=== PATIENT | female | born 2000 | race African-American/Black ===

== ENCOUNTER 2024-07-01 12:37 | Emergency (ER) | payer OTHER ==
[2024-07-01 12:42] VITALS: BP 117/76; PULSE 89; RESP 18; TEMP 98.7; BMI 28.3
[2024-07-01] MEDS ORDERED: IBUPROFEN 600 MG TABLET (FP) PO ONE (13:03)
[2024-07-01] MEDS: IBUPROFEN 600 MG TABLET (FP) PO ONE (13:06)
== END 2024-07-01 13:34 | disposition home or self-care (01) ==
LOC: JERFT 12:37
DX: S93.401A Sprain of unspecified ligament of right ankle, initial encounter (principal); X50.1XXA Overexertion from prolonged static or awkward postures, initial encounter
CPT/HCPCS: 73610-TC-RT-FY; 73630-TC-RT-FY; 99283-25